=== PATIENT | female | born 1995 | race Caucasian/White ===

== ENCOUNTER 2016-10-18 15:04 | Emergency (ER) | payer OTHER ==
[~2016-10-18 15:04] MED LIST: BACTROBAN OINT22 GM T; CLARITIN10 MG PO; FLONASE ALLERG9.9 ML NAS; MOTRIN800 MG PO; OMNICEF300 MG PO; PREDNISONE10 MG PO; PRENATAL1 TA1 PO; PRENATAL1 TA7 PO; ROBITUSSIN AC 110 ML PO; TRAMADOL HCL50 MG PO; ZOFRAN ODT4 MG SL
[2016-10-18 17:05] LABS: BASO # 0.1 10*3/uL (0.0-0.1); BASO % 0.7 % (0.0-1.0); EOS # 0.5 10*3/uL (0.0-0.4); EOS % 6.5 % (1.0-4.0); HEMATOCRIT 41.4 % (37.0-47.0); HEMOGLOBIN 13.6 g/dl (12.0-16.0); LYMPH # 2.7 10*3/uL (1.3-4.4); LYMPH % 33.5 % (27.0-41.0); MEAN CELL VOLUME 86.8 fl (81.0-99.0); MEAN CORPUSCULAR HGB 28.5 pg (27.0-31.0); MEAN CORPUSCULAR HGB CONC 32.9 g/dl (33.0-37.0); MEAN PLATELET VOLUME 10.4 fl (9.6-12.3); MONO % 11.7 % (3.0-9.0); NEUT # 3.9 10*3/uL (2.3-7.9); NEUT % 47.5 % (47.0-73.0); PLATELET COUNT AUTOMATED 212 10*3/uL (130-400); RED BLOOD COUNT 4.77 10*6/uL (4.10-5.10); RED CELL DISTRI WIDTH 15.1 % (0-14.5); WHITE BLOOD COUNT 8.1 10*3/uL (4.8-10.8)
[2016-10-18 17:19] LABS: BILIRUBIN NEGATIVE (NEGATIVE); BLOOD TRACE-INTACT (NEGATIVE); CLARITY SL CLOUDY (CLEAR); COLOR YELLOW (YELLOW); GLUCOSE NEGATIVE (NEGATIVE); KETONE NEGATIVE (NEGATIVE); LEUKO ESTERASE NEGATIVE (NEGATIVE); NITRITE NEGATIVE (NEGATIVE); PROTEIN NEGATIVE (NEGATIVE); SPECIFIC GRAVITY 1.025 (1.005-1.030)
[2016-10-18 17:22] LABS: ALBUMIN 3.7 gm/dl (3.1-4.5); ALKALINE PHOSPHATASE 87 U/L (45-117); BILIRUBIN, TOTAL 0.3 mg/dl (0.2-1.0); BUN 10 mg/dl (7-24); CARBON DIOXIDE 28 mmol/L (21-32); CHLORIDE 104 mmol/L (98-107); EST GLOM FILT AFRICAN AMERICAN > 60 ml/min; GLUCOSE 62 mg/dL (65-99); SGOT/AST 9 IU/L (3-35); SGPT/ALT 15 U/L (12-78); SODIUM 140 mmol/L (136-145); TOTAL PROTEIN 7.3 gm/dL (6.4-8.2)
[2016-10-18 17:36] LABS: BACTERIA 2+; MUCOUS TRACE; RBC 0-2 rbc/hpf (0-2); URINE REFLEX COMMENT YES (NO)
[2016-10-18] MEDS ORDERED: MACROBID100 M1 PO (18:00)
== END 2016-10-18 18:46 | disposition home or self-care (01) ==
LOC: ED 15:04
PROVIDERS: Nurse Practitioner Family
DX: N30.01 Acute cystitis with hematuria (principal); F17.200 Nicotine dependence, unspecified, uncomplicated; Z88.0 Allergy status to penicillin

== ENCOUNTER 2017-01-05 18:53 | Emergency (ER) | payer OTHER ==
[~2017-01-05] VITALS: Ht 149.8 cm; Wt 72.6 kg
[~2017-01-05 18:53] MED LIST changes: +MACROBID100 M1 PO
[2017-01-05] MEDS ORDERED: FLONASE ALLERG9.9 ML NAS (19:47)
[2017-01-05] MEDS ORDERED: ZYRTEC10 MG PO (19:47)
[2017-01-05 20:47] LABS: BILIRUBIN NEGATIVE (NEGATIVE); BLOOD NEGATIVE (NEGATIVE); CLARITY SL CLOUDY (CLEAR); COLOR YELLOW (YELLOW); GLUCOSE NEGATIVE (NEGATIVE); KETONE NEGATIVE (NEGATIVE); LEUKO ESTERASE TRACE (NEGATIVE); NITRITE NEGATIVE (NEGATIVE); PROTEIN NEGATIVE (NEGATIVE); UROBILINOGEN 0.2 E.U./dl (0.2-1.0)
[2017-01-05 20:57] LABS: BACTERIA 2+; URINE REFLEX COMMENT YES (NO)
[2017-01-05] MEDS ORDERED: BENTYL10 MG PO (22:48)
[2017-01-05] MEDS ORDERED: MIRALAX POWDER255 G1 PO (22:48)
== END 2017-01-05 23:35 | disposition home or self-care (01) ==
LOC: ED 18:53
PROVIDERS: Emergency Medicine Emergency Medical Services
DX: K59.8 Other specified functional intestinal disorders (principal); K59.00 Constipation, unspecified; F17.200 Nicotine dependence, unspecified, uncomplicated; Z88.0 Allergy status to penicillin

== ENCOUNTER 2017-07-07 12:59 | Emergency (ER) | payer OTHER ==
[~2017-07-07] VITALS: Ht 157.4 cm; Wt 65.3 kg
[~2017-07-07 12:59] MED LIST changes: +BENTYL10 MG PO; +MIRALAX POWDER255 G1 PO; +ZYRTEC10 MG PO
[2017-07-07] MEDS ORDERED: PRENATABS RX T1 EACH PO (15:09)
[2017-07-07] MEDS ORDERED: PRENATAL VITAM1 EAC5 PO (15:11)
[2017-07-07] MEDS ORDERED: PRENA1 TRUE CO1 EACH PO (15:13)
== END 2017-07-07 22:20 | disposition home or self-care (01) ==
LOC: ED 12:59
DX: O9A.212 Injury, poisoning and certain other consequences of external causes complicating pregnancy, second trimester (principal); O99.332 Smoking (tobacco) complicating pregnancy, second trimester; S06.2X0A Diffuse traumatic brain injury without loss of consciousness, initial encounter; F17.200 Nicotine dependence, unspecified, uncomplicated; Z3A.16 16 weeks gestation of pregnancy; Z88.0 Allergy status to penicillin; Y04.0XXA Assault by unarmed brawl or fight, initial encounter; Y93.89 Activity, other specified; Y92.89 Other specified places as the place of occurrence of the external cause; Y99.8 Other external cause status

== ENCOUNTER 2017-07-28 11:47 | Emergency (ER) | payer OTHER ==
[~2017-07-28] VITALS: Ht 157.4 cm; Wt 61.2 kg
[~2017-07-28 11:47] MED LIST changes: +PRENA1 TRUE CO1 EACH PO; +PRENATABS RX T1 EACH PO; +PRENATAL VITAM1 EAC5 PO
[2017-07-28] MEDS ORDERED: ZITHROMAX250 MG PO (12:46)
== END 2017-07-28 12:51 | disposition home or self-care (01) ==
LOC: ED 11:47
DX: J01.90 Acute sinusitis, unspecified (principal); F17.200 Nicotine dependence, unspecified, uncomplicated; Z88.0 Allergy status to penicillin

== ENCOUNTER 2017-09-22 15:06 | Emergency (ER) | payer OTHER ==
[~2017-09-22] VITALS: Ht 157.4 cm; Wt 68.0 kg
[~2017-09-22 15:06] MED LIST changes: +ZITHROMAX250 MG PO
[2017-09-22 15:34] LABS: BASO % 0.2 % (0.0-1.0); EOS # 0.1 10*3/uL (0.0-0.4); HEMATOCRIT 36.7 % (37.0-47.0); HEMOGLOBIN 12.6 g/dl (12.0-16.0); LYMPH # 1.1 10*3/uL (1.3-4.4); MEAN CELL VOLUME 91.5 fl (81.0-99.0); MEAN CORPUSCULAR HGB 31.4 pg (27.0-31.0); MEAN CORPUSCULAR HGB CONC 34.3 g/dl (33.0-37.0); MEAN PLATELET VOLUME 10.5 fl (9.6-12.3); MONO % 9.4 % (3.0-9.0); NEUT # 7.9 10*3/uL (2.3-7.9); NEUT % 77.9 % (47.0-73.0); PLATELET COUNT AUTOMATED 159 10*3/uL (130-400); RED BLOOD COUNT 4.01 10*6/uL (4.10-5.10); RED CELL DISTRI WIDTH 13.2 % (0-14.5); WHITE BLOOD COUNT 10.1 10*3/uL (4.8-10.8)
[2017-09-22 15:48] LABS: ALBUMIN 2.7 gm/dl (3.1-4.5); ALKALINE PHOSPHATASE 102 U/L (45-117); BUN 10 mg/dl (7-24); CHLORIDE 106 mmol/L (98-107); POTASSIUM 4.1 mmol/L (3.5-5.1); SGOT/AST 13 IU/L (3-35); SGPT/ALT 11 U/L (12-78); SODIUM 139 mmol/L (136-145)
[2017-09-22 15:49] LABS: BILIRUBIN 1+ (NEGATIVE); BLOOD NEGATIVE (NEGATIVE); CLARITY SL CLOUDY (CLEAR); COLOR YELLOW (YELLOW); GLUCOSE NEGATIVE (NEGATIVE); KETONE 3+ (NEGATIVE); LEUKO ESTERASE NEGATIVE (NEGATIVE); NITRITE NEGATIVE (NEGATIVE); SPECIFIC GRAVITY 1.025 (1.005-1.030)
[2017-09-22 16:00] LABS: BACTERIA TRACE; EPITHELIAL CELLS TNTC
[2017-09-22 16:01] LABS: MUCOUS 1+
[2017-09-22] MEDS ORDERED: DICLEGIS DR 101 EACH PO (17:29)
== END 2017-09-22 17:33 | disposition home or self-care (01) ==
LOC: ED 15:06
PROVIDERS: Nurse Practitioner Family
DX: O99.612 Diseases of the digestive system complicating pregnancy, second trimester (principal); K52.9 Noninfective gastroenteritis and colitis, unspecified; O99.332 Smoking (tobacco) complicating pregnancy, second trimester; F17.200 Nicotine dependence, unspecified, uncomplicated; Z88.0 Allergy status to penicillin; Z79.899 Other long term (current) drug therapy; Z3A.26 26 weeks gestation of pregnancy

== ENCOUNTER 2017-12-01 14:38 | Emergency (ER) | payer OTHER ==
[~2017-12-01] VITALS: Ht 152.4 cm; Wt 74.8 kg
[~2017-12-01 14:38] MED LIST changes: +DICLEGIS DR 101 EACH PO
== END 2017-12-01 16:22 | disposition home or self-care (01) ==
LOC: ED 14:38
DX: O26.893 Other specified pregnancy related conditions, third trimester (principal); O99.333 Smoking (tobacco) complicating pregnancy, third trimester; F17.200 Nicotine dependence, unspecified, uncomplicated; Z88.0 Allergy status to penicillin; Z79.899 Other long term (current) drug therapy; Z3A.37 37 weeks gestation of pregnancy

== ENCOUNTER 2018-04-17 21:55 | Emergency (ER) | payer OTHER ==
[~2018-04-17] VITALS: Ht 157.4 cm; Wt 70.3 kg
[2018-04-17] MEDS ORDERED: CLINDAMYCIN HC300 MG PO (23:45)
[2018-05-30] MEDS ORDERED: CLINDAMYCIN HC300 MG PO (16:00)
== END 2018-04-17 23:58 | disposition home or self-care (01) ==
LOC: ED 21:55
DX: S90.451A Superficial foreign body, right great toe, initial encounter (principal); F17.200 Nicotine dependence, unspecified, uncomplicated; Z79.899 Other long term (current) drug therapy; Z88.0 Allergy status to penicillin; W22.8XXA Striking against or struck by other objects, initial encounter; Y93.89 Activity, other specified; Y92.89 Other specified places as the place of occurrence of the external cause; Y99.9 Unspecified external cause status

== ENCOUNTER 2018-08-05 17:32 | Emergency (ER) | payer OTHER ==
[~2018-08-05] VITALS: Ht 160 cm; Wt 65.8 kg
[~2018-08-05 17:32] MED LIST changes: +CLINDAMYCIN HC300 MG PO
[2018-08-05 17:49] LABS: BILIRUBIN NEGATIVE (NEGATIVE); BLOOD TRACE-INTACT (NEGATIVE); CLARITY CLEAR (CLEAR); COLOR YELLOW (YELLOW); GLUCOSE NEGATIVE (NEGATIVE); KETONE NEGATIVE (NEGATIVE); LEUKO ESTERASE NEGATIVE (NEGATIVE); NITRITE NEGATIVE (NEGATIVE); PH 6.5 (5.0-9.0); SPECIFIC GRAVITY <= 1.005 (1.005-1.030); UROBILINOGEN 0.2 E.U./dl (0.2-1.0)
[2018-08-05 17:58] LABS: BACTERIA TRACE; WBC 0-2 wbc/hpf (0-5)
== END 2018-08-05 18:03 | disposition home or self-care (01) ==
LOC: ED 17:32
PROVIDERS: Nurse Practitioner Family
DX: N94.6 Dysmenorrhea, unspecified (principal); N92.0 Excessive and frequent menstruation with regular cycle; Z88.0 Allergy status to penicillin

== ENCOUNTER 2018-09-09 20:15 | Emergency (ER) | payer SELFPAY ==
[~2018-09-09] VITALS: Ht 160 cm
[2018-09-09 20:37] LABS: BILIRUBIN NEGATIVE (NEGATIVE); BLOOD TRACE-INTACT (NEGATIVE); CLARITY SL CLOUDY (CLEAR); COLOR YELLOW (YELLOW); GLUCOSE NEGATIVE (NEGATIVE); KETONE NEGATIVE (NEGATIVE); LEUKO ESTERASE 3+ (NEGATIVE); NITRITE NEGATIVE (NEGATIVE)
[2018-09-09 20:48] LABS: BACTERIA 1+; EPITHELIAL CELLS 15-20; WBC TNTC wbc/hpf (0-5)
[2018-09-09] MEDS ORDERED: MIRALAX POWDER255 G1 PO (22:07)
[2018-09-09] MEDS ORDERED: SEPTDS PO (22:07)
== END 2018-09-09 22:25 | disposition home or self-care (01) ==
LOC: ED 20:15
PROVIDERS: Emergency Medicine Emergency Medical Services
DX: N39.0 Urinary tract infection, site not specified (principal); K59.00 Constipation, unspecified; Z88.0 Allergy status to penicillin; Z79.899 Other long term (current) drug therapy; Z79.2 Long term (current) use of antibiotics

== ENCOUNTER → 2019-04-23 | Outpatient (CLI) | payer OTHER ==
[~2019-04-23] MED LIST changes: +MEDROL DOSEPAK4 MG PO; +NAPROSYN500 MG PO; +PREDNISONE20 M1 PO; +PROVENTIL HFA6.7 GM INH; +ROBAXIN500 M1 PO; +ROBITUSSIN DM 101 OZ PO; +SEPTDS PO
== END | disposition home or self-care (01) ==
LOC: US 08:30
DX: N63.20 Unspecified lump in the left breast, unspecified quadrant (principal)

== ENCOUNTER 2019-04-30 14:30 | Emergency (ER) | payer OTHER ==
[~2019-04-30] VITALS: Ht 160 cm; Wt 64.9 kg
[~2019-04-30 14:30] MED LIST changes: -MEDROL DOSEPAK4 MG PO; -NAPROSYN500 MG PO; -PREDNISONE20 M1 PO; -PROVENTIL HFA6.7 GM INH; -ROBAXIN500 M1 PO; -ROBITUSSIN DM 101 OZ PO
[2019-04-30] MEDS ORDERED: NAPROSYN500 MG PO (16:29)
[2019-04-30] MEDS ORDERED: MEDROL DOSEPAK4 MG PO (16:29)
[2019-04-30] MEDS ORDERED: ROBAXIN500 M1 PO (16:29)
[2019-05-14] MEDS ORDERED: SEPTDS PO (04:44)
== END 2019-04-30 16:48 | disposition home or self-care (01) ==
LOC: ED 14:30
DX: M54.12 Radiculopathy, cervical region (principal); Z88.0 Allergy status to penicillin

== ENCOUNTER → 2019-05-08 | Outpatient (CLI) | payer OTHER ==
[~2019-05-08] MED LIST changes: +MEDROL DOSEPAK4 MG PO; +NAPROSYN500 MG PO; +PREDNISONE20 M1 PO; +PROVENTIL HFA6.7 GM INH; +ROBAXIN500 M1 PO; +ROBITUSSIN DM 101 OZ PO
== END | disposition home or self-care (01) ==
LOC: MAMMO 14:26
DX: N63.20 Unspecified lump in the left breast, unspecified quadrant (principal)

== ENCOUNTER 2019-06-17 20:35 | Emergency (ER) | payer OTHER ==
[~2019-06-17] VITALS: Ht 157.4 cm; Wt 65.8 kg
[~2019-06-17 20:35] MED LIST changes: -PREDNISONE20 M1 PO; -PROVENTIL HFA6.7 GM INH; -ROBITUSSIN DM 101 OZ PO
== END 2019-06-17 22:42 ==
LOC: ED 20:35
DX: M25.561 Pain in right knee (principal); M79.89 Other specified soft tissue disorders; Z88.0 Allergy status to penicillin; Z79.899 Other long term (current) drug therapy; Z79.2 Long term (current) use of antibiotics

== ENCOUNTER 2019-06-19 09:41 | Emergency (ER) | payer OTHER ==
[~2019-06-19] VITALS: Ht 157.4 cm; Wt 65.8 kg
[2019-06-19] MEDS ORDERED: PREDNISONE20 M1 PO (10:09)
[2019-06-19] MEDS ORDERED: PROVENTIL HFA6.7 GM INH (10:09)
[2019-06-19] MEDS ORDERED: ROBITUSSIN DM 101 OZ PO (10:09)
[2019-06-19] MEDS ORDERED: SEPTDS PO (18:58)
== END 2019-06-19 10:01 | disposition home or self-care (01) ==
LOC: ED 09:41
DX: J06.9 Acute upper respiratory infection, unspecified (principal); H92.09 Otalgia, unspecified ear; F17.200 Nicotine dependence, unspecified, uncomplicated; Z88.0 Allergy status to penicillin; Z79.899 Other long term (current) drug therapy; Z79.2 Long term (current) use of antibiotics

== ENCOUNTER 2019-06-19 18:24 | Emergency (ER) | payer OTHER ==
[~2019-06-19] VITALS: Ht 157.4 cm; Wt 65.8 kg
[~2019-06-19 18:24] MED LIST changes: +PREDNISONE20 M1 PO; +PROVENTIL HFA6.7 GM INH; +ROBITUSSIN DM 101 OZ PO
[2019-06-19] MEDS ORDERED: SEPTDS PO (18:58)
== END 2019-06-19 19:12 | disposition home or self-care (01) ==
LOC: ED 18:24
DX: L02.811 Cutaneous abscess of head [any part, except face] (principal); L03.811 Cellulitis of head [any part, except face]; Z88.0 Allergy status to penicillin; Z79.899 Other long term (current) drug therapy; Z79.2 Long term (current) use of antibiotics

== ENCOUNTER 2020-10-21 02:40 | Emergency (ER) | payer SELFPAY ==
[~2020-10-21] VITALS: Ht 45.7 cm; Wt 2.6 kg
[2020-10-21 04:58] LABS: BASO # 0.1 10*3/uL (0.0-0.1); BASO % 0.3 % (0.0-1.0); EOS # 0.2 10*3/uL (0.0-0.4); EOS % 1.1 % (1.0-4.0); HEMATOCRIT 32.3 % (37.0-47.0); MEAN CORPUSCULAR HGB 24.9 pg (27.0-31.0); MEAN PLATELET VOLUME 10.5 fl (9.6-12.3); MONO % 6.8 % (3.0-9.0); NEUT # 10.8 10*3/uL (2.3-7.9); NEUT % 71.3 % (47.0-73.0); PLATELET COUNT AUTOMATED 286 10*3/uL (130-400); RED BLOOD COUNT 3.89 10*6/uL (4.10-5.10); WHITE BLOOD COUNT 15.2 10*3/uL (4.8-10.8)
[2020-10-21 05:12] LABS: BUN 8 mg/dl (7-24); CHLORIDE 103 mmol/L (98-107); CREATININE 0.73 mg/dL (0.55-1.02); POTASSIUM 3.1 mmol/L (3.5-5.1); SODIUM 137 mmol/L (136-145)
[2020-10-22 05:07] LABS: HEPATITIS B SURFACE AG Negative (Negative); HEPATITIS C AB <0.1 (0.0-0.9)
--- NOTE | 2020-10-22 08:44 | NUR ---
JOSE RAFAEL RECIEVED CALL FROM THEA SCHMIDT- [place] SO[employer] WORK[employer] FOR [facility]. SHE ASKED FOR EMERGENCY CONTACT INFORMATION. SHE ASKED IF A TOXICOLOGY REPORT WAS DONE ON THIS PATIENT. INDUSTRIAL [employer] MANAGER PROVIDED HER THE INFORMATION. INDUSTRIAL [employer]FET[employer] MANAGER ALSO PROVIDED HER THE CONTACT INFORMATION FOR [facility]. THEA GALINDO CONTACT NUMBER IS [phone], [place] [employer].
== END 2020-10-21 06:08 | disposition short-term general hospital (02) ==
LOC: ED 02:40
PROVIDERS: Emergency Medicine
DX: O80 Encounter for full-term uncomplicated delivery (principal); Z37.0 Single live birth; Z88.0 Allergy status to penicillin; Z3A.28 28 weeks gestation of pregnancy

== ENCOUNTER 2022-02-26 20:54 | Emergency (ER) | payer SELFPAY ==
[~2022-02-26] VITALS: Ht 157.4 cm; Wt 70.4 kg
[2022-02-26 22:13] LABS: BASO # 0.1 10*3/uL (0.0-0.1); BASO % 0.8 % (0.0-1.0); EOS # 0.3 10*3/uL (0.0-0.4); EOS % 4.1 % (1.0-4.0); HEMATOCRIT 46.1 % (37.0-47.0); LYMPH # 2.3 10*3/uL (1.3-4.4); LYMPH % 31.7 % (27.0-41.0); MEAN CELL VOLUME 86.8 fl (81.0-99.0); MEAN CORPUSCULAR HGB 28.6 pg (27.0-31.0); MEAN PLATELET VOLUME 10.6 fl (9.6-12.3); MONO # 0.5 10*3/uL (0.1-1.0); MONO % 7.3 % (3.0-9.0); PLATELET COUNT AUTOMATED 290 10*3/uL (130-400); RED BLOOD COUNT 5.31 10*6/uL (4.10-5.10); RED CELL DISTRI WIDTH 13.2 % (0-14.5); WHITE BLOOD COUNT 7.2 10*3/uL (4.8-10.8)
[2022-02-26 22:29] LABS: ALKALINE PHOSPHATASE 114 U/L (45-117); BUN 15 mg/dl (7-24); CHLORIDE 111 mmol/L (98-107); CREATININE 0.78 mg/dL (0.55-1.02); POTASSIUM 3.6 mmol/L (3.5-5.1); SGOT/AST 16 IU/L (3-35); SGPT/ALT 21 U/L (12-78); SODIUM 141 mmol/L (136-145); TOTAL PROTEIN 8.3 gm/dL (6.4-8.2)
[2022-02-26 22:36] LABS: BILIRUBIN 2+ (Negative); BLOOD Negative (Negative); CLARITY Cloudy (Clear); COLOR Dark Yellow (Yellow); GLUCOSE Negative (Negative); KETONE 2+ (Negative); LEUKO ESTERASE Trace (Negative); NITRITE Negative (Negative); SPECIFIC GRAVITY >= 1.030 (1.001-1.030)
[2022-02-26 22:44] LABS: URINE AMPHETAMINES < 1000 (1000ng/ml); URINE BARBITURATES < 200 (200ng/ml); URINE BENZODIAZEPINES < 200 (200ng/ml); URINE CANNABINOIDS (THC) < 50 (50ng/ml); URINE COCAINE < 300 (300ng/ml); URINE METHADONE < 300 (300ng/ml); URINE OPIATES < 300 (300ng/ml)
[2022-02-26 22:59] LABS: URINE PHENCYCLIDINE < 25 (25ng/ml)
[2022-02-26 23:24] LABS: EPITHELIAL CELLS 31-40
[2022-02-26 23:25] LABS: BACTERIA TRACE
== END 2022-02-26 23:57 | disposition home or self-care (01) ==
LOC: ED 20:54
PROVIDERS: Nurse Practitioner Family
DX: N83.8 Other noninflammatory disorders of ovary, fallopian tube and broad ligament (principal)

== ENCOUNTER 2022-06-09 07:49 | Emergency (ER) | payer MEDICAID | END 2022-06-09 11:34 | disposition left against medical advice (07) | LOC: ED 07:49 | DX: K08.89 Other specified disorders of teeth and supporting structures (principal); Z53.21 Procedure and treatment not carried out due to patient leaving prior to being seen by health care provider ==

== ENCOUNTER 2022-09-21 16:48 | Emergency (ER) | payer MEDICAID ==
[~2022-09-21] VITALS: Wt 65.8 kg
[2022-09-21 22:32] LABS: ALKALINE PHOSPHATASE 91 U/L (46-116); BUN 9 mg/dl (9-23); CHLORIDE 105 mmol/L (98-107); CREATININE 0.68 mg/dL (0.55-1.02); LIPASE 30 U/L (12-53); POTASSIUM 3.6 mmol/L (3.4-5.1); SGPT/ALT 9 U/L (10-49); SODIUM 137 mmol/L (136-145); TOTAL PROTEIN 8.4 gm/dL (6.0-8.0)
[2022-09-21 22:34] LABS: THYROID STIM HORMONE (HS) 0.632 uIU/ml (0.550-4.780)
[2022-09-21 22:57] LABS: BASO # 0.1 10*3/uL (0.0-0.1); BASO % 0.5 % (0.0-1.0); EOS # 0.3 10*3/uL (0.0-0.4); EOS % 2.4 % (1.0-4.0); HEMATOCRIT 46.6 % (37.0-47.0); LYMPH # 3.5 10*3/uL (1.3-4.4); LYMPH % 33.4 % (27.0-41.0); MEAN CELL VOLUME 85.3 fl (81.0-99.0); MEAN CORPUSCULAR HGB 27.5 pg (27.0-31.0); MEAN CORPUSCULAR HGB CONC 32.2 g/dl (33.0-37.0); MEAN PLATELET VOLUME 10.3 fl (9.6-12.3); MONO # 0.9 10*3/uL (0.1-1.0); MONO % 8.3 % (3.0-9.0); NEUT # 5.8 10*3/uL (2.3-7.9); NEUT % 55.2 % (47.0-73.0); PLATELET COUNT AUTOMATED 287 10*3/uL (130-400); RED BLOOD COUNT 5.46 10*6/uL (4.10-5.10); RED CELL DISTRI WIDTH 13.3 % (0-14.5); WHITE BLOOD COUNT 10.5 10*3/uL (4.8-10.8)
[2022-09-22] MEDS ORDERED: ONDANSETRON4 MG SL (01:30)
[2022-09-22 02:48] LABS: BILIRUBIN Negative (Negative); BLOOD Negative (Negative); CLARITY Clear (Clear); COLOR Dark Yellow (Yellow); GLUCOSE Negative (Negative); KETONE 3+ (Negative); LEUKO ESTERASE Negative (Negative); NITRITE Negative (Negative); PH 5.5 (4.5-8.0); SPECIFIC GRAVITY >= 1.030 (1.001-1.030)
[2022-09-22 03:02] LABS: EPITHELIAL CELLS 21-30
== END 2022-09-22 02:43 | disposition home or self-care (01) ==
LOC: ED 16:48
PROVIDERS: Emergency Medicine
DX: B34.9 Viral infection, unspecified (principal); Z20.822 Contact with and (suspected) exposure to COVID-19; E86.0 Dehydration; Z88.0 Allergy status to penicillin

== ENCOUNTER 2022-09-24 10:53 | Emergency (ER) | payer MEDICAID ==
[~2022-09-24] VITALS: Ht 157.4 cm; Wt 65.8 kg
[~2022-09-24 10:53] MED LIST changes: +ONDANSETRON4 MG SL
[2022-09-24 11:42] LABS: BASO # 0.1 10*3/uL (0.0-0.1); BASO % 0.6 % (0.0-1.0); EOS # 0.2 10*3/uL (0.0-0.4); EOS % 2.8 % (1.0-4.0); HEMATOCRIT 38.2 % (37.0-47.0); LYMPH # 1.6 10*3/uL (1.3-4.4); LYMPH % 19.4 % (27.0-41.0); MEAN CELL VOLUME 83.6 fl (81.0-99.0); MEAN CORPUSCULAR HGB 27.6 pg (27.0-31.0); MEAN PLATELET VOLUME 10.1 fl (9.6-12.3); MONO # 0.7 10*3/uL (0.1-1.0); MONO % 8.1 % (3.0-9.0); NEUT # 5.7 10*3/uL (2.3-7.9); PLATELET COUNT AUTOMATED 252 10*3/uL (130-400); RED BLOOD COUNT 4.57 10*6/uL (4.10-5.10); RED CELL DISTRI WIDTH 13.4 % (0-14.5); WHITE BLOOD COUNT 8.3 10*3/uL (4.8-10.8)
[2022-09-24 12:03] LABS: BILIRUBIN Negative (Negative); BLOOD Trace-Lysed (Negative); CLARITY Clear (Clear); COLOR Yellow (Yellow); GLUCOSE Negative (Negative); KETONE Trace (Negative); LEUKO ESTERASE Negative (Negative); NITRITE Negative (Negative); PH 5.5 (4.5-8.0); SPECIFIC GRAVITY 1.015 (1.001-1.030); UROBILINOGEN 0.2 E.U./dl (0.0-1.0)
[2022-09-24 12:06] LABS: ALKALINE PHOSPHATASE 75 U/L (46-116); BUN 7 mg/dl (9-23); CHLORIDE 104 mmol/L (98-107); CREATININE 0.65 mg/dL (0.55-1.02); POTASSIUM 3.5 mmol/L (3.4-5.1); SGPT/ALT 8 U/L (10-49); SODIUM 139 mmol/L (136-145); TOTAL PROTEIN 7.2 gm/dL (6.0-8.0)
[2022-09-24 12:26] LABS: BACTERIA 1+; MUCOUS 1+; RBC 0-2 rbc/hpf (0-2)
== END 2022-09-24 14:37 | disposition home or self-care (01) ==
LOC: ED 10:53
PROVIDERS: Nurse Practitioner Family
DX: B34.9 Viral infection, unspecified (principal); R10.12 Left upper quadrant pain; Z88.0 Allergy status to penicillin

== ENCOUNTER 2023-05-23 10:14 | Emergency (ER) | payer MEDICAID ==
[~2023-05-23] VITALS: Ht 157.4 cm; Wt 65.8 kg
[2023-05-23] MEDS ORDERED: CEPHALEXIN500 M1 PO (13:40)
== END 2023-05-23 14:28 | disposition home or self-care (01) ==
LOC: ED 10:14
DX: R51.9 Headache, unspecified (principal); R11.0 Nausea; F41.9 Anxiety disorder, unspecified; Z88.0 Allergy status to penicillin

== ENCOUNTER 2023-05-24 19:55 | Emergency (ER) | payer MEDICAID ==
[~2023-05-24] VITALS: Ht 157.4 cm; Wt 65.8 kg
[~2023-05-24 19:55] MED LIST changes: +CEPHALEXIN500 M1 PO
== END 2023-05-25 02:25 | disposition home or self-care (01) ==
LOC: ED 19:55
DX: G43.909 Migraine, unspecified, not intractable, without status migrainosus (principal); F41.9 Anxiety disorder, unspecified; Z88.0 Allergy status to penicillin

== ENCOUNTER 2024-03-19 00:29 | Emergency (ER) | payer OTHER ==
[~2024-03-19] VITALS: Ht 157.4 cm; Wt 74.8 kg
[2024-03-19 01:09] LABS: BILIRUBIN Negative (Negative); BLOOD Negative (Negative); CLARITY Clear (Clear); COLOR Yellow (Yellow); GLUCOSE Negative (Negative); KETONE Trace (Negative); LEUKO ESTERASE Trace (Negative); NITRITE Negative (Negative); SPECIFIC GRAVITY 1.025 (1.001-1.030)
[2024-03-19 01:19] LABS: BACTERIA 1+; MUCOUS 1+; RBC 0-2 rbc/hpf (0-2); WBC 16-20 wbc/hpf (0-5)
[2024-03-19] MEDS ORDERED: AZITHROMYCIN 250 MG TAB PO ONE (01:35)
[2024-03-19] MEDS ORDERED: Water, Sterile 10 ML VIAL ONE (01:44)
== END 2024-03-19 02:06 | disposition home or self-care (01) ==
LOC: ED 00:29
PROVIDERS: Internal Medicine
DX: A64 Unspecified sexually transmitted disease (principal); F41.9 Anxiety disorder, unspecified; G43.909 Migraine, unspecified, not intractable, without status migrainosus; Z88.0 Allergy status to penicillin

== ENCOUNTER 2024-05-05 22:15 | Emergency (ER) | payer OTHER ==
[~2024-05-05] VITALS: Ht 157.4 cm; Wt 77.1 kg
[2024-05-05 23:11] LABS: BASO # 0.1 10*3/uL (0.0-0.1); BASO % 0.7 % (0.0-1.0); EOS # 1.2 10*3/uL (0.0-0.4); EOS % 11.1 % (1.0-4.0); HEMATOCRIT 37.5 % (37.0-47.0); LYMPH # 2.7 10*3/uL (1.3-4.4); LYMPH % 24.4 % (27.0-41.0); MEAN CELL VOLUME 83.1 fl (81.0-99.0); MEAN CORPUSCULAR HGB 26.6 pg (27.0-31.0); MEAN PLATELET VOLUME 10.5 fl (9.6-12.3); MONO # 0.9 10*3/uL (0.1-1.0); MONO % 8.3 % (3.0-9.0); NEUT # 6.2 10*3/uL (2.3-7.9); NEUT % 55.2 % (47.0-73.0); PLATELET COUNT AUTOMATED 242 10*3/uL (130-400); RED BLOOD COUNT 4.51 10*6/uL (4.10-5.10); RED CELL DISTRI WIDTH 15.1 % (0-14.5); WHITE BLOOD COUNT 11.1 10*3/uL (4.8-10.8)
[2024-05-05 23:30] LABS: BILIRUBIN Negative (Negative); BLOOD Negative (Negative); CLARITY Clear (Clear); COLOR Yellow (Yellow); GLUCOSE Negative (Negative); KETONE Negative (Negative); LEUKO ESTERASE Negative (Negative); NITRITE Negative (Negative); PH 6.5 (4.5-8.0)
[2024-05-05 23:38] LABS: EPITHELIAL CELLS 16-20; RBC 0-2 rbc/hpf (0-2); WBC 0-2 wbc/hpf (0-5)
[2024-05-05 23:43] LABS: ALKALINE PHOSPHATASE 66 U/L (46-116); BUN 11 mg/dl (9-23); CHLORIDE 104 mmol/L (98-107); SGPT/ALT 8 U/L (5-49)
== END 2024-05-06 00:16 | disposition home or self-care (01) ==
LOC: ED 22:15
PROVIDERS: Internal Medicine
DX: O21.9 Vomiting of pregnancy, unspecified (principal); O26.891 Other specified pregnancy related conditions, first trimester; N94.89 Other specified conditions associated with female genital organs and menstrual cycle; R11.0 Nausea; G43.909 Migraine, unspecified, not intractable, without status migrainosus; F41.9 Anxiety disorder, unspecified; Z3A.01 Less than 8 weeks gestation of pregnancy; Z88.0 Allergy status to penicillin

== ENCOUNTER 2024-07-10 15:51 | Emergency (ER) | payer OTHER ==
[~2024-07-10] VITALS: Ht 157.4 cm; Wt 74.8 kg
[2024-07-10 16:49] LABS: BASO # 0.1 10*3/uL (0.0-0.1); BASO % 0.6 % (0.0-1.0); EOS # 1.4 10*3/uL (0.0-0.4); HEMATOCRIT 34.3 % (37.0-47.0); LYMPH # 2.8 10*3/uL (1.3-4.4); LYMPH % 22.4 % (27.0-41.0); MEAN CELL VOLUME 85.5 fl (81.0-99.0); MEAN CORPUSCULAR HGB 28.2 pg (27.0-31.0); MEAN CORPUSCULAR HGB CONC 32.9 g/dl (33.0-37.0); MONO # 0.9 10*3/uL (0.1-1.0); MONO % 7.2 % (3.0-9.0); NEUT # 7.2 10*3/uL (2.3-7.9); NEUT % 58.4 % (47.0-73.0); PLATELET COUNT AUTOMATED 224 10*3/uL (130-400); RED BLOOD COUNT 4.01 10*6/uL (4.10-5.10); WHITE BLOOD COUNT 12.4 10*3/uL (4.8-10.8)
[2024-07-10 17:18] LABS: BILIRUBIN Negative (Negative); BLOOD Negative (Negative); CLARITY Cloudy (Clear); COLOR Yellow (Yellow); GLUCOSE Negative (Negative); KETONE Trace (Negative); LEUKO ESTERASE Trace (Negative); NITRITE Negative (Negative); SPECIFIC GRAVITY >= 1.030 (1.001-1.030)
[2024-07-10 17:22] LABS: ALKALINE PHOSPHATASE 72 U/L (46-116); BUN 8 mg/dl (9-23); CHLORIDE 107 mmol/L (98-107); POTASSIUM 3.6 mmol/L (3.4-5.1); SGPT/ALT 7 U/L (5-49); TOTAL PROTEIN 6.8 gm/dL (6.0-8.0)
[2024-07-10 17:29] LABS: BACTERIA 1+; EPITHELIAL CELLS TNTC
[2024-07-10] MEDS ORDERED: MACROBID100 M1 PO (17:49)
== END 2024-07-10 17:57 | disposition home or self-care (01) ==
LOC: ED 15:51
PROVIDERS: Nurse Practitioner
DX: O23.42 Unspecified infection of urinary tract in pregnancy, second trimester (principal); N39.0 Urinary tract infection, site not specified; R10.2 Pelvic and perineal pain; F41.9 Anxiety disorder, unspecified; G43.909 Migraine, unspecified, not intractable, without status migrainosus; Z88.0 Allergy status to penicillin; Z3A.17 17 weeks gestation of pregnancy

== ENCOUNTER 2024-12-10 08:53 | Emergency (ER) | payer OTHER ==
[~2024-12-10] VITALS: Wt 72.6 kg
[2024-12-10] MEDS ORDERED: AVPAK AZITHROM250 M1 PO (11:15)
[2024-12-10] MEDS ORDERED: AZITHROMYCIN 250 MG TAB PO ONE (11:20)
== END 2024-12-10 11:50 | disposition home or self-care (01) ==
LOC: ED 08:53
DX: J40 Bronchitis, not specified as acute or chronic (principal); Z20.822 Contact with and (suspected) exposure to COVID-19; F41.9 Anxiety disorder, unspecified; G43.909 Migraine, unspecified, not intractable, without status migrainosus; Z88.0 Allergy status to penicillin

== ENCOUNTER 2025-05-18 16:33 | Emergency (ER) | payer OTHER ==
[~2025-05-18] VITALS: Ht 157.4 cm; Wt 72.6 kg
[~2025-05-18 16:33] MED LIST changes: +AVPAK AZITHROM250 M1 PO
[2025-05-18 17:16] LABS: BILIRUBIN Negative (Negative); BLOOD Negative (Negative); CLARITY Cloudy (Clear); COLOR Yellow (Yellow); KETONE Trace (Negative); LEUKO ESTERASE 2+ (Negative); NITRITE Negative (Negative); PH 5.5 (4.5-8.0); SPECIFIC GRAVITY 1.020 (1.001-1.030); UROBILINOGEN 1.0 E.U./dl (0.0-1.0)
[2025-05-18 17:28] LABS: BACTERIA 3+; RBC 0-2 rbc/hpf (0-2); WBC 16-20 wbc/hpf (0-5)
[2025-05-18 17:29] LABS: EPITHELIAL CELLS 31-40
[2025-05-18] MEDS ORDERED: VIBRAMYCIN100 MG PO (17:29)
[2025-05-18] MEDS ORDERED: Water, Sterile 10 ML VIAL ONE (17:51)
== END 2025-05-18 17:37 | disposition home or self-care (01) ==
LOC: ED 16:33
PROVIDERS: Nurse Practitioner Family
DX: Z20.2 Contact with and (suspected) exposure to infections with a predominantly sexual mode of transmission (principal); Z88.0 Allergy status to penicillin